=== PATIENT | male | born 1980 | race African-American/Black ===

== ENCOUNTER 2019-12-24 13:16 | Inpatient (IN) | payer OTHER ==
[~2019-12-24] VITALS: Ht 182.9 cm; Wt 116.3 kg
[2019-12-24] VITALS (17 sets, daily range): BP systolic 89–115; BP diastolic 40–89
[2019-12-24 14:05] LABS: URINE BILIRUBIN NEGATIVE (Negative); URINE BLOOD 2+ (Negative); URINE COLOR YELLOW; URINE GLUCOSE-RANDOM* NEGATIVE (Negative); URINE KETONES NEGATIVE (Negative); URINE NITRITE-REFLEX NEGATIVE (Negative); URINE PROTEIN (DIPSTICK) NEGATIVE (Negative); URINE SPECIFIC GRAVITY 1.015 (1.005-1.035); URINE UROBILINOGEN >= 8.0 E.U./dl (0.2-1.0)
[2019-12-24 14:11] LABS: AMP/METHAMP Negative (Negative); BARBITURATES Negative (Negative); BENZODIAZEPINES Negative (Negative); COCAINE Negative (Negative); METHADONE Negative (Negative); OPIATES Negative (Negative); PCP Negative (Negative)
[2019-12-24] MEDS ORDERED: FOLIC ACID1 MG PO (14:13)
[2019-12-24] MEDS ORDERED: ENULOSE10 GM/15 M PO (14:13)
[2019-12-24] MEDS ORDERED: FEOSOL325 M1 PO (14:13)
[2019-12-24] MEDS ORDERED: ROXICODONE5 M2 PO (14:14)
[2019-12-24] MEDS ORDERED: LEXAPRO20 MG PO (14:14)
[2019-12-24] MEDS ORDERED: SUPER THERAVIT1 EACH PO (14:14)
[2019-12-24] MEDS ORDERED: MIDODRINE HCL10 MG PO (14:14)
[2019-12-24] MEDS ORDERED: PROPRANOLOL 1010 M1 PO (14:15)
[2019-12-24] MEDS ORDERED: PROTONIX40 M2 PO (14:15)
[2019-12-24 14:16] LABS: URINE LEUKOCYTES-REFLEX 2+ (Negative)
[2019-12-24] MEDS ORDERED: TORSEMIDE10 MG PO (14:16)
[2019-12-24] MEDS ORDERED: SPIRONOLACTONE100 M1 PO (14:16)
[2019-12-24] MEDS ORDERED: XIFAXAN550 M1 PO (14:16)
[2019-12-24 14:17] LABS: URINE CLARITY SL HAZY
[2019-12-24] MEDS ORDERED: VITAMIN B-1100 M2 PO (14:17)
[2019-12-24 14:23] LABS: BACTERIA-REFLEX 1-9 Few /HPF (None Seen); CASTS None Seen /LPF (None Seen); CRYSTALS None Seen /LPF (None Seen); SQUAMOUS 4-10 Moderate /LPF (0-3); URINE RBC 3-10 Few /HPF (0-2); URINE WBC-REFLEX 6-15 Few /HPF (0-5); WBC CLUMPS Few (None Seen)
[2019-12-24 15:45] LABS: RDW 17.3 % (10.5-14.5)
[2019-12-24 15:46] LABS: BASOPHILS 0.2 % (0.0-2.0); EOSINOPHILS 0.5 % (0.0-3.0); LYMPHOCYTES 9.6 % (24.0-44.0); MCH 29.7 pg (26.0-34.0); MCHC 33.4 g/dL (28.0-37.0); MCV 88.9 fL (80.0-100.0); POLYS 78.7 % (36.0-66.0); RBC 1.92 mil/uL (4.50-6.00)
[2019-12-24 15:49] LABS: HEMATOCRIT 17.1 % (42.0-52.0); HEMOGLOBIN 5.7 gm/dL (14.0-18.0)
[2019-12-24 16:07] LABS: PLATELET COUNT 65 thou/uL (150-400)
[2019-12-24 16:08] LABS: CALCIUM 10.7 mg/dL (8.5-10.1); CREATININE 2.9 mg/dL (0.7-1.3); LARGE PLATELETS RARE; POTASSIUM 3.9 mmol/L (3.5-5.1)
[2019-12-24 16:12] LABS: MAGNESIUM 1.3 mg/dL (1.8-2.4); TOTAL BILIRUBIN 11.2 mg/dL (<0.1-1.0); TOTAL PROTEIN 5.4 g/dL (6.4-8.2); TROPONIN-I 0.07 ng/mL (<0.06)
--- NOTE | 2019-12-24 18:35 | NUR ---
VASCULAR ACCESS TEAM CONSULTED FOR PICC LINE, PT'S LABS,MEDS,HISTORY,ORDER AND CONSENT VERIFIED. DISCUSSED BENEFITS AND RISKS OF PICC WITH COUSIN,LISA, VERBALIZED UNDERSTANDING. ELODIA BRACHIAL WIDELY PATENT WITH USG. PT VERY RESTLESS AND COMBATIVE DURING DIFFICULT INSERTION. 5FR TL PICC TRIMMED TO 37CM INSERTED TO 2CM EXTERNAL WITH BRISK BR. SITE BLEEDING, GAUZE AND COBAN APPLIED, PT HAS LOW PLATELET COUNT.HAD DIFFICULTY DROPPING PICC LINE HAD TO REPOSITION PT SEVERAL TIMES. STAT CXR ORDERED.
--- NOTE | 2019-12-24 18:58 | NUR ---
cxr showed PICC IN UPPER SVC, STERILE DRG,GAUZE REMOVED. POWER FLUSHED INSERTED TO 0CM WITH BRISK BR. 2ND CXR ORDERED.
--- NOTE | 2019-12-24 19:19 | NUR ---
2ND CXR SHOWED LINE GOING ACROSS CHEST, SO AGAIN POWER FLUSHED ALL 3 PORTS, 3RD CXR SHOWED LINE STRAIGHTENED IN SVC.
--- NOTE | 2019-12-24 19:42 | NUR ---
3RD XRAY CONFIRMED PICC PLACEMENT AT [facility], PICC RELEASED FOR IMMEDIATE USE PER PROTOCOL.
--- NOTE | 2019-12-24 19:52 | NUR ---
RECIEVED PATIENT FROM ER, MOANING BUT NOT COMMUNICATING. TRANSFERED TO ICU BED. RESTLESS AND AGITATED. BRIEF SOAKED IN URINE AND SMALL AMOUNT OF BLOODY STOOL NOTED. IV TEAM AT BEDSIDE TO PLACE PICC AND COUSIN CYRUS ALSO AT BEDSIDE AND ABLE TO ANSWER SOME HISTORY QUESTIONS. WILL REPORT TO NIGHT RN.
[2019-12-24 21:13] LABS: INR 2.3; PROTIME 23.5 Seconds (9.3-11.4)
[2019-12-24 23:45] LABS: HEMATOCRIT 17.3 % (42.0-52.0); HEMOGLOBIN 5.8 gm/dL (14.0-18.0)
[2019-12-25] VITALS (66 sets, daily range): BP systolic 84–124; BP diastolic 32–79
--- NOTE | 2019-12-25 02:01 | NUR ---
NEED CONSENT SIGNED BY PT'S DPOA/COUSIN CYURS FOR GI PROCEDURE ON 12/24. AROUND 2214, MESSAGE LEFT FOR CYRUS TO CALL NURSES STATION. NO CALL BACK YET RECEIVED.
[2019-12-25 04:34] LABS: CALCIUM 9.4 mg/dL (8.5-10.1); CREATININE 2.6 mg/dL (0.7-1.3); MAGNESIUM 1.1 mg/dL (1.8-2.4); POTASSIUM 3.9 mmol/L (3.5-5.1)
[2019-12-25 05:02] LABS: MCH 29.8 pg (26.0-34.0)
[2019-12-25 05:04] LABS: ABSOLUTE NEUTROPHILS 3.5 thou/uL (1.4-8.2); BASOPHILS 0.6 % (0.0-2.0); EOSINOPHILS 0.4 % (0.0-3.0); LYMPHOCYTES 8.3 % (24.0-44.0); MCHC 33.7 g/dL (28.0-37.0); MCV 88.3 fL (80.0-100.0); MONOCYTES 11.4 % (1.0-8.0); PLATELET COUNT 52 thou/uL (150-400); POLYS 79.3 % (36.0-66.0); RBC 1.98 mil/uL (4.50-6.00); RDW 16.9 % (10.5-14.5); WBC 4.5 thou/uL (4.0-11.0)
[2019-12-25 05:07] LABS: HEMATOCRIT 17.5 % (42.0-52.0); HEMOGLOBIN 5.9 gm/dL (14.0-18.0)
--- NOTE | 2019-12-25 07:42 | NUR ---
ASSUMED PT CARE AROUND 1900. PT RESPONDS TO HIS NAME BUT IS OTHERWISE VERY CONFUSED. HE YELLS OUT "NO" AND CUSSES WHEN APPROACHED OR TOUCHED BY STAFF MEMBERS. PT WAS VERY RESTLESS AND AGITATED AT BEGINNING OF SHIFT. NOTIFIED SHIPS OR BARGES LOADER PATHOLOGY SPECIALIST FOR HOSPITALIST; HALDOL GIVEN PER ORDER. PT APPEARED TO BE IN PAIN WELL. FENTANYL GIVEN ORDERED. PT HAD TWO LARGE MAROON STOOLS THIS SHIFT. PT CALMED DOWN AND SLEPT AFTER HE RECEIVED THE FENTANYL. PT WAS GIVEN 2 UNITS OF PRBCS FOR HGB<7. 3RD UNIT PRBCS STARTED THIS MORNING HGB WAS STILL CRITICALLY LOW. SBP 80S THIS MORNING AND URINE VERY CONCENTRATED. NOTIFIED SHIPS OR BARGES LOADER PATHOLOGY SPECIALIST FOR HOSPITALIST. AFEBRILE. FALL PRECAUTIONS IN PLACE. NOT PROGRESSING WELL TOWARD POC GOALS. REPORT GIVEN TO ONCOMING NURSE.
--- NOTE | 2019-12-25 08:45 | EKG ---
[facility] [place] [address] ELECTROCARDIOGRAM REPORT Name: MAR ROMAN Room #: 245-P ADM IN M.R.#: [id number] Admission: 12/24/19 Attend Phys: Chris Chiang MD Discharge: Date of : 76 Report #: [id number] THIS REPORT FOR: cc: Himanshu Shah James D. DO Lundgren, Craig H. MD [facility] THIS REPORT FOR: //name// [facility] ED Test Date: 2019-12-24 Test Time: 14:19:37 Pat Name: MAR ROMAN Department: Patient ID: [id number]- Room: Gender: M Enterprise Sales Person: juwan : 1980 Requested By: Shekhar Cuellar Order Number: [id number] MD: Denver Smart Measurements Intervals [place] Rate: 70 P: NC: QRS: 24 QRSD: 101 T: 167 QT: 480 QTc: 519 Interpretive Statements Baseline artifact limits rhythm interpretation. Supraventricular rhythm Nonspecific ST and T wave abnormality Prolonged QT interval No previous ECG available for comparison Electronically Signed On 12-25-2019 8:44:25 CDT by Denver Smart [email or web address] <ELECTRONICALLY SIGNED> By: Denver Smart MD, [facility] 12/25/19 0844 1419 1419 Denver Smart MD, [facility] /EPI
--- NOTE | 2019-12-25 08:56 | NUR ---
chart review. pt in bed with eyes closed bedside nurse in room as well. pt verbal stated " come on now, oh. legs hurt"/antione in a very loud voice. bedside nurse still with pt at end of visit. unable to educate on dcp and transition of care rt pt mental status at this time. karlos spoke with pt cousin carlie va phone call, he reported " [facility] and most of days at [facility] then went to [facility] for short term rehab. he is self employed, lives in house alone. has few stairs at home. independent. had acute rehab at [facility]. no outpt or inpt rehab for ethol."carlie. will cont following as needed for dc needs.
[2019-12-25 09:13] LABS: HEMATOCRIT 20.3 % (42.0-52.0); HEMOGLOBIN 6.9 gm/dL (14.0-18.0)
--- NOTE | 2019-12-25 12:48 | NUR ---
prbc's infusing, tolerating. pt yelling out, unable to console, continues yelling. SR, remains npo, adequate urine output. report given to Georgiana gi solder making laborer, pt transported to gi lab per icu bed.
--- NOTE | 2019-12-25 13:30 | NUR ---
returned from gi lab per icu bed. pt hollering out, restless. alert to person and that he is in the hospital. SR, 2L/nc, jason with adequate bonny urine output.
--- NOTE | 2019-12-25 14:59 | P ---
[facility] [place] [address] PROCEDURE REPORT Name: MAR ROMAN Room #: [facility]-P [facility] IN M.R.#: [id number] Admission: 12/24/19 Attend Phys: Chris Chiang MD Discharge: Date of : 76 Report #: [id number] THIS REPORT FOR: cc: Himanshu Shah James D. DO Thesing, John A. MD ~ CC: Chris Meza INPATIENT UPPER ENDOSCOPY BRIEF HISTORY: The patient is a 39-year-old male with known history of cirrhosis and previous variceal banding with evidence of GI bleeding. He presented with a hemoglobin of 5.5. I do not have an exact date, but I believe [facility]. Upper endoscopy on 12/11/2019 at [facility] revealed 1+ esophageal varices and esophageal ulcers. PREOPERATIVE DIAGNOSES: Gastrointestinal bleeding and portal hypertension. POSTOPERATIVE DIAGNOSES: 1. Multiple ulcers of the esophagus, nonbleeding. 2. Very small and barely detectable esophageal varices, 1+, nonbleeding. 3. Diffuse gastritis, nonbleeding. MEDICATIONS: Deep sedation with propofol per anesthesia. SPECIMEN: None. ESTIMATED BLOOD LOSS: None. PROCEDURE: EGD. FINDINGS: Prior to propofol sedation, procedure of upper endoscopy discussed with the patient. He indicates he understands and desired that we proceed. DESCRIPTION OF PROCEDURE: The patient was fairly uncooperative and the procedure was done in the supine position with his head and chest raised about 30 degrees. The Olympus video endoscope was inserted in cervical esophagus under direct vision. Examination of this organ through its entire length revealed no evidence of blood within the lumen of the esophagus. In the distal esophagus, there were multiple ulcers. The ulcers appeared to be fairly superficial and appeared to be healing. There was white to yellowish exudate over the ulcers. However, stigmata of bleeding was not seen such as clots, red dots, black clots or exposed vessels. In addition, there was evidence of scarring in the distal esophagus. Also, very subtle 1+ or less esophageal [facility] [address] [place] [address] PROCEDURE REPORT Name: MAR ROMAN Room #: 245-P [facility] IN M.R.#: [id number] Admission: 12/24/19 Attend Phys: Chris Chiang MD Discharge: Date of : 76 Report #: [id number] varices were seen. There was no stigmata of bleeding from the varices. The scope was advanced in the stomach, was examined on end view as well as retroflexed views. There was gastritis and there was bile throughout the stomach. However, no blood or clot was seen within the stomach. The mucosa was intact and there was no evidence of bleeding. Upon retroflexion, no mass lesions were seen. Also, gastric varices were not seen. The pylorus was unremarkable. Duodenal bulb was unremarkable. Duodenal sweep down to third portion was unremarkable. Specifically, there was no evidence of blood in the duodenum. No ulcers were seen. At that point, the scope was slowly withdrawn and careful circumferential views confirmed the above findings. The patient tolerated the procedure well. DISPOSITION: The patient with GI bleeding. He was noted to have portal hypertension. However, I do not find evidence of bleeding on his upper endoscopy. His varices were minimal and not likely to bleed. Also, he does have esophageal ulcers from previous banding. However, stigmata of bleeding is not identified. Source of bleeding is not clear. A colonoscopy would be indicated. However, the patient is very uncooperative and somewhat combative. I am not sure that he will cooperate for colonoscopy prep. Bleeding scan would be a consideration, but I am not sure he would cooperate for that procedure as well. CT scan of the abdomen with contrast may also be a consideration, but he has a creatinine of 2.6 and therefore that study could not be done. Hopefully, in a day or so, he will settle down, so we can have him do a prep and proceed with colonoscopy. Another option, which would be an unprepped colonoscopy, which potentially could be very difficult in this patient. <ELECTRONICALLY SIGNED> By: Chun Meza MD 12/25/19 1459 1324 1345 Chun Meza MD /nt
--- NOTE | 2019-12-25 14:59 | HC ---
[facility] [place] [address] CONSULTATION Name: MAR ROMAN Room #: [facility]- ADM IN M.R.#: [id number] Admission: 12/24/19 Attend Phys: Chris Chiang MD Discharge: Date of : 76 Report #: [id number] THIS REPORT FOR: cc: Himanshu Shah James D. DO Thesing, John A. MD ~ CC: Chris Meza DATE OF SERVICE: 12/24/2019 REASON FOR CONSULTATION: The patient is a 39-year-old male with history of cirrhosis and liver failure with worsening mental status changes as well as marked anemia and evidence of GI bleeding. HISTORY OF PRESENT ILLNESS: This patient is in Intensive Care Unit at [facility] at this time. He is confused and lethargic and unable to give a history. I spoke with the nurse who spoke to a cousin who reportedly is DPOA. According to that person prior to his recent admissions which I will review, he had been living alone by himself. However, apparently he was admitted to [facility] with evidence of hemorrhage and shock secondary to acute GI bleeding with variceal bleeding. He also had internal and external hemorrhoids. He was stabilized at [facility] and since he is out of network, he was transferred to [facility] where he was seen by GI and Nephrology services. Apparently, he had banding of varices, I presume at [facility]. On 12/11/2019, he had an upper endoscopy at [facility] and there is a report on the chart that indicates he had nonbleeding esophageal ulcers, grade 1 varices and normal stomach and duodenum. He presumably had large varices, which were banded and presumably the ulcers were from the banding. He was treated with octreotide as well. He also received multiple units of packed cells and FFP. He also had evidence of kidney injury and was seen by the Nephrology service as well. He also had encephalopathy and was treated with lactulose and Xifaxan. He also had been on spironolactone and midodrine and OxyIR. Other notes in the records indicate he received 5 units of packed cells and 6 units of FFP as well as 2 units of platelets and 10 packs of cryo at [facility]. He was transferred to a nursing facility. Apparently, he has done poorly and he was brought to [facility] due to failure to thrive and increasing confusion. He was evaluated in the Emergency Room here at [facility] and laboratory studies were obtained and he was found to have hemoglobin of 5.7, MCV 88.9, white count of 5.0 and a platelet count of 65,000. His electrolytes were normal, his CO2 was 32, his BUN of 42, creatinine 2.9. Lactic acid was 5.8. His calcium was a little elevated at 10.7, magnesium 1.3, total bilirubin 11.2, AST of 69, ALT of 27, alkaline phosphatase 74. Ammonia was 113. [facility] [address] [place] [address] CONSULTATION Name: MAR ROMAN Room #: 245-P ADM IN M.R.#: [id number] Admission: 12/24/19 Attend Phys: Chris Chiang MD Discharge: Date of : 76 Report #: [id number] Albumin 3.0. Drug screen was negative. Alcohol is less than 10. The patient is currently in the intensive care unit. He as of this time has not received any blood. His vital signs are stable at this time and recent blood pressure is 112/62 with a pulse of 67, respiratory rate of 14. PAST MEDICAL HISTORY: Limited information available at this time from the records from the nursing facility. His list of diagnoses include posthemorrhagic anemia, alcoholic cirrhosis without ascites, hepatic failure, esophageal varices with bleeding, portal hypertension, protein-calorie malnutrition, pleural effusion, hyperparathyroidism, obesity, hyperlipidemia, anxiety, posttraumatic stress disorder, obstructive sleep apnea, reflux disease, acute kidney failure and chronic kidney disease. MEDICATIONS: Usual medicines from the nursing facility include lactulose 30 mL by mouth 4 times a day, iron sulfate 325 mg 1 daily, folic acid 1 mg daily, Lexapro 20 mg daily, midodrine 10 mg with meals, multivitamin, oxycodone 5 every 2 hours as needed for [id number] pain, propranolol 10 mg twice daily, Protonix 40 mg twice a day, rifaximin 550 mg twice daily, spironolactone 100 mg daily, torsemide 1 tablet 2 times daily and thiamine. FAMILY HISTORY: Unknown. SOCIAL HISTORY: Other than he was living alone recently and reportedly has alcoholic liver disease, no additional history is noted. REVIEW OF SYSTEMS: Unobtainable as the patient could not provide due to his altered mental status and confusion. PHYSICAL EXAMINATION: GENERAL: The patient is a well-developed, well-nourished mildly obese -[place] male in no acute distress. VITAL SIGNS: Blood pressure 112/62, pulse 67. HEENT: He has bilateral scleral icterus. Oropharynx clear. NECK: Supple. CHEST: Clear anteriorly. He has tender bilateral gynecomastia. HEART: Regular rate and rhythm. S1, S2. ABDOMEN: He is somewhat overweight. His abdomen is soft, normal bowel sounds. Mild diffuse tenderness. No rebound or rigidity. I did not appreciate organomegaly at this time. I did not appreciate significant ascites on exam. EXTREMITIES: With bilateral edema. NEUROLOGIC: The patient is confused. He moans and is somewhat combative. He has restraints. He also is tremulous and I did not appreciate asterixis, which is difficult to appreciate with his tremulousness. 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 [facility] [address] [place] [address] CONSULTATION Name: MAR ROMAN Room #: 245-P [facility] IN M.R.#: [id number] Admission: 12/24/19 Attend Phys: Chris Chiang MD Discharge: Date of : 76 Report #: [id number] In addition, he reportedly has internal and external hemorrhoids at the time of examination, on the bed with some maroonish bloody material. The patient reports that he has had 2 small outputs. He has not had a large volume of bleeding either with melena and there has been no hematemesis. ASSESSMENT: 1. Gastrointestinal bleeding, possibly related to portal hypertension and esophageal ulcer, status post banding of varices. 2. Cirrhosis, reportedly related to alcohol. 3. Portal hypertension with esophageal varices. 4. Ascites, minimal on exam at this time. 5. Hepatic encephalopathy. 6. Acute and chronic kidney disease. 7. Lactic acidosis. 8. Thrombocytopenia. COMMENT: The patient with evidence of GI bleeding and marked anemia. His heart rate and pulses are within normal limits at this point in time. Although there is some blood on the bedding, he is not briskly bleeding at this point in time. He has not yet been transfused. We have not yet received a prothrombin time. RECOMMENDATIONS: 1. Agree with octreotide drip, which has been started. 2. Agree with pantoprazole drip, which has been started. 3. Agree with transfusions, which have been ordered. 4. Follow up on prothrombin time. 5. If possible, would prefer to wait until he has been transfused and resuscitated prior to endoscopic intervention, likely tomorrow. However, if there is evidence of brisk bleeding, it could be completed at that time. 6. Agree with lactulose and Xifaxan. <ELECTRONICALLY SIGNED> By: Chun Meza MD 12/25/19 1459 42 32 Chun Meza MD /nt
[2019-12-25 18:43] LABS: HEMOGLOBIN 7.8 gm/dL (14.0-18.0)
--- NOTE | 2019-12-25 20:00 | NUR ---
obtained telephone consent for egd. remained npo. prbc's infusing, pt down to and returned from gi lab on icu bed. egd negative for bleeding. tolerated prbc's, then ffp infusing. po prep started for colonscopy. pt yelling, hollering throughout majority of shift. haldol iv given without any relief, if anything he became more irritable, taking covers off and then beginning to try to get out of bed. Dr. Chiang notifed- order received for zyprexa. with Rhiannon Hanna RN's assistance, after she administered med, completed bath given. well tolerated, then pt dozing intermittently. family called, inquired regarding pt status, updated.
[2019-12-26] VITALS (26 sets, daily range): BP systolic 89–135; BP diastolic 43–82
[2019-12-26 00:18] LABS: HEMATOCRIT 23.2 % (42.0-52.0); HEMOGLOBIN 7.8 gm/dL (14.0-18.0)
[2019-12-26 06:11] LABS: INR 2.5; PROTIME 25.6 Seconds (9.3-11.4)
[2019-12-26 06:21] LABS: ABSOLUTE NEUTROPHILS 3.1 thou/uL (1.4-8.2); BASOPHILS 0.2 % (0.0-2.0); EOSINOPHILS 0.9 % (0.0-3.0); HEMATOCRIT 23.2 % (42.0-52.0); HEMOGLOBIN 7.7 gm/dL (14.0-18.0); LYMPHOCYTES 12.5 % (24.0-44.0); MCH 29.5 pg (26.0-34.0); MCHC 33.4 g/dL (28.0-37.0); MCV 88.3 fL (80.0-100.0); MONOCYTES 11.2 % (1.0-8.0); PLATELET COUNT 57 thou/uL (150-400); POLYS 75.2 % (36.0-66.0); RBC 2.63 mil/uL (4.50-6.00); RDW 17.3 % (10.5-14.5); WBC 4.1 thou/uL (4.0-11.0)
[2019-12-26 06:30] LABS: ALBUMIN 2.8 g/dL (3.4-5.0); CALCIUM 9.6 mg/dL (8.5-10.1); CREATININE 2.2 mg/dL (0.7-1.3); PHOSPHORUS 3.5 mg/dL (2.5-4.9); POTASSIUM 3.4 mmol/L (3.5-5.1); TOTAL BILIRUBIN 11.7 mg/dL (<0.1-1.0); TOTAL PROTEIN 5.1 g/dL (6.4-8.2)
--- NOTE | 2019-12-26 06:33 | NUR ---
PT CONFUSED AND FORGETFUL THROUGHOUT THE NIGHT. PT HAD BM X3. VITAL SIGNS STABLE. NPO SINCE MIDNIGHT. PLAN FOR COLONSCOPY TODAY. NO BLOODY BM AT NIGHT. PT PROGRESSING TOWARDS GOALS. CONTINUE TO MONITOR. CHART CHECK.
--- NOTE | 2019-12-26 13:22 | NUR ---
FAXED CLINICAL UPDATE TO [facility] SPOKE WITH BRIAN IN ADM SHE RECEIVED UPDATE. DP TO FOLLOW.
--- NOTE | 2019-12-26 18:30 | NUR ---
no active signs of bleeding. incontinent several stools. prep in progress for am colonscopy. confused, attempting to reorient, , jason with adequate urine output. slowly progressing.
[2019-12-27] VITALS (22 sets, daily range): BP systolic 48–109; BP diastolic 29–83
[2019-12-27 05:31] LABS: HEMATOCRIT 24.5 % (42.0-52.0); HEMOGLOBIN 8.1 gm/dL (14.0-18.0)
--- NOTE | 2019-12-27 05:37 | NUR ---
PT SLEEPING VERY WELL. PT HAD HIS HEART RATE DOWN TO LOW 40'S AND CAME RIGHT BACK UP TO LOW 50'S. PT'S BLOOD PRESSURE NORMOTENSIVE WITH SYSTOLIC MORE THAN 90 AND MAP GREATER THAN 65. COMMUNITY HEALTH PROGRAM REPRESENTATIVE NOTIFIED AND TOLD THE RN TO CLOSELY MONITOR THE PT AT THIS MOMENT.
[2019-12-27 05:41] LABS: ALBUMIN 2.6 g/dL (3.4-5.0); CALCIUM 8.8 mg/dL (8.5-10.1); CREATININE 1.7 mg/dL (0.7-1.3); POTASSIUM 3.3 mmol/L (3.5-5.1); TOTAL BILIRUBIN 10.4 mg/dL (<0.1-1.0); TOTAL PROTEIN 4.7 g/dL (6.4-8.2)
--- NOTE | 2019-12-27 07:27 | NUR ---
PT HAD X3 BM. NO BLOODY STOOLS. PLAN FOR COLONSCOPY THIS AM. POSSIBLE TRANSFER TO CCU. CHART CHECK. REPORT GIVEN TO OMEGA LINARES. PT PROGRESSING TOWARDS GOALS. CONTINUE TO MONITOR.
--- NOTE | 2019-12-27 13:41 | NUR ---
Status report called to Dr Barber. Earlier temp was 95.1 rectally and came up to 98.1 orally (warming blanket on pt). Pt is drowsy but arousable and will respond appropriately. Pt able to recall the correct year. Follows simple commands. Incontinent of watery liquid green stool. Most recent blood pressure 89/44. Transfer order clarified-ok to proceed with transfer to CCU or Critical care tele.
--- NOTE | 2019-12-27 18:00 | NUR ---
Pt had leaking around PICC line insertion site with red drainage. Sterile dressing change done by Jose Luis Hanna RN. Report called to esteban Steele RN on 2N at approx 1730. Pt transferred to 203 via bed. Pt more alert now and talking. Aware he is in the hospital. Pt was incontinent of large liqui stool-bath given by Livia DUFF prior to transfer. Pt oriented to new room by receiving RN. Call light in reach.
--- NOTE | 2019-12-27 18:07 | NUR ---
1730-HAD LG AMT (DOWN TO FEET) LQD GRN STOOL,VERY SEEDY.--VW
--- NOTE | 2019-12-27 18:49 | NUR ---
PT CARE ASSUMED APPROX 1800. PT ALERT. DENIES PAIN AND SOA. VSS. TOLERATING CLD. RUE PICC LINE CONTINUES TO BLEED PER NURSE REPORT. IV NURSE AT BEDSIDE AT THIS TIME REDRESSING. SHE WANTS COBAN THAT IS PLACING TO BE LEFT IN PLACE OVERNIGHT. WILL PASS ON TO NOC NURSE. NO DISTRESS NOTED.
[2019-12-28 00:06] LABS: GLYCOHEMOGLOBIN (HGB A1C) 5.2 % (4.8-5.6)
[2019-12-28 04:45] VITALS: BP 100/61
--- NOTE | 2019-12-28 04:58 | NUR ---
ASSUMED PT CARE AT 1900. PT IS ALERT AND CONFUSED, FORGETFUL. ICU TRANSFER. NO SIGN OF DISTRESS NOTED IN PT. FALL PRECAUTION IN PLACE. CALL LIGHT WITHIN REACH. DENIES ANY PAIN. ASSESSMENT COMPLETED AND DOCUMENTED. VITAL SIGNS STABLE. SCHEDULED MEDS ADMINISTERED TO PT. TOLERATED PO INTAKE. PT IS NPO FOR A COLONOSCOPY. CONTINUE TO MONITOR, NO FURTHER NEEDS AT THIS TIME.
[2019-12-28 06:39] LABS: ALBUMIN 2.7 g/dL (3.4-5.0); CALCIUM 8.9 mg/dL (8.5-10.1); CREATININE 1.6 mg/dL (0.7-1.3); PHOSPHORUS 2.7 mg/dL (2.5-4.9); POTASSIUM 3.5 mmol/L (3.5-5.1)
[2019-12-28 07:45] VITALS: BP 102/63
[2019-12-28 09:34] LABS: HEMATOCRIT 24.5 % (42.0-52.0); HEMOGLOBIN 8.2 gm/dL (14.0-18.0); MCH 30.3 pg (26.0-34.0); MCHC 33.4 g/dL (28.0-37.0); MCV 90.5 fL (80.0-100.0); RBC 2.7 mil/uL (4.50-6.00); RDW 19.3 % (10.5-14.5); WBC 4.2 thou/uL (4.0-11.0)
[2019-12-28 09:52] LABS: PROTIME 24.8 Seconds (9.3-11.4)
[2019-12-28 09:53] LABS: INR 2.4
--- NOTE | 2019-12-28 11:32 | NUR ---
Assumed pt care at 7am.Pt in bed alert and oriented to self only.Assessmet completed.vss.Pt wanted to eat and drink.Rn oriented patient and let him know that he will eat and drink after procedure today.Dr Chiang here,new order noted.She said pt will possibly dc home later today if stable after procedure. At around 1030,pt left per bed to gi lab accompanied by 2rns.Will continue to monitor.
--- NOTE | 2019-12-28 13:08 | NUR ---
BRAYAN reviewed chart and spoke with nursing and attending physician. Pt transferred to CCU from ICU yesterday. Pt had colonoscopy earlier today. Pt is progressing towards goals for discharge. Therapy ordered today to evaluate pt. BRAYAN updated [facility] post-acute liaison. Will need to obtain insurance authorization for pt to return to SNF. Awaiting therapy evals at this time. traffic and transport planner to fax clinical updates and therapy evals to [facility] for review when available. BRAYAN spoke with pt's cousin, Cuong, via phone to provide update. Cuong is agreeable with discharge plan. No weekend discharge anticipated, as facility will need to obtain insurance auth. BRAYAN is following to assist as needed with discharge planning.
--- NOTE | 2019-12-28 15:01 | NUR ---
FAXED REFERRAL TO [facility] FOR SKILLED STAY PT/OT NOTES NOT IN YET WILL FAX ONCE AVAILABLE. SPOKE WITH BRIAN IN ADM SHE RECEIVED REFERRAL AND WILL NEED TO SUBMIT FOR AUTH. PT WILL NOT DC OVER WEEKEND. DP TO FOLLOW.
[2019-12-28 15:37] LABS: HEMATOCRIT 27.5 % (42.0-52.0); HEMOGLOBIN 9.1 gm/dL (14.0-18.0); MCH 30.3 pg (26.0-34.0); MCV 91.7 fL (80.0-100.0); RDW 19.5 % (10.5-14.5); WBC 4.9 thou/uL (4.0-11.0)
[2019-12-28 16:07] LABS: ABSOLUTE NEUTROPHILS 3.5 thou/uL (1.4-8.2); ANISOCYTOSIS 3+
[2019-12-28 16:08] LABS: POLYCHROMASIA OCCASIONAL; SCHISTOCYTES OCCASIONAL
[2019-12-28 16:09] LABS: PLATELET COUNT 90 thou/uL (150-400); POIKILOCYTOSIS 1+
[2019-12-28 16:35] VITALS: BP 105/62
--- NOTE | 2019-12-28 17:09 | P ---
[facility] [place] [address] PROCEDURE REPORT Name: MAR ROMAN Room #: 203-P [facility] IN M.R.#: [id number] Admission: 12/24/19 Attend Phys: Chris Chiang MD Discharge: Date of : 76 Report #: [id number] THIS REPORT FOR: cc: Himanshu Shah James D. DO Thesing, John A. MD ~ CC: Chris Meza INPATIENT COLONOSCOPY REPORT BRIEF HISTORY: The patient is a 39-year-old male who has a known history of liver disease with portal hypertension and recently had banding of esophageal varices at another institution. He presented with GI bleeding. Upper endoscopy earlier this week revealed nonbleeding ulcers in the esophagus, which were likely from banding. They were nearly completely healed. There are also minimal varices and no gastric varices. It was uncertain if the patient had an upper GI bleed or lower GI bleeds, so colonoscopy was recommended. PREOPERATIVE DIAGNOSIS: Gastrointestinal bleeding. POSTOPERATIVE DIAGNOSES: 1. Multiple colon polyps. 2. Diverticulosis coli. 3. Large internal hemorrhoids. MEDICATIONS: Deep sedation with propofol per anesthesia. SPECIMENS: 1. Diminutive polyp, mid transverse colon. 2. Diminutive polyp, cecum. 3. Polyps x 2 at 30 cm. ESTIMATED BLOOD LOSS: 5 mL. PROCEDURE: Colonoscopy to cecum and terminal ileum with snare polypectomy, biopsy, and placement of endoscopic clips at polypectomy site. FINDINGS: Prior to propofol sedation, procedure was discussed with the patient. He is very drowsy, only does respond and therefore consent was obtained from his durable power of title attorney. DESCRIPTION OF PROCEDURE: Subsequently, the Olympus video colonoscope was introduced in the rectum, advanced under direct vision. The patient has not been all that cooperative. Specifically, the prep is poor. However, it was felt this is as likely the best we could do with this patient at this point in [facility] [address] [place] [address] PROCEDURE REPORT Name: MAR ROMAN Room #: 203-P [facility] IN [facility].#: [id number] Admission: 12/24/19 Attend Phys: Chris Chiang MD Discharge: Date of : 76 Report #: [id number] time. We irrigated and suctioned as much as possible, but ____ material could not be completely removed. The scope was advanced into the cecum, which was identified by the ileocecal valve and the appendiceal orifice. I was able to visualize the distal segment of terminal ileum. There was no blood or inflammatory changes or neoplastic changes in the terminal ileum. At that point, the scope was slowly withdrawn and careful circumferential views were obtained. Again, the prep was limited. However, we were able to obtain views of multiple areas of the mucosa, which was normal throughout the entire exam. A diminutive polyp was seen in the cecum, removed by cold biopsy forceps. He does have liver disease and he has borderline platelets. A hemostatic clip was placed at the polypectomy site with good hemostasis. The scope was further withdrawn and a few diverticula was seen in the proximal colon. Once again, no blood was seen. No inflammatory changes were seen. No mass lesions were seen. It is noted he does have a diffusely dilated colon suggestive of chronic constipation. In the mid transverse colon, another diminutive polyp was seen and removed with biopsy forceps. There was good hemostasis and clipping was not required. Scope was further withdrawn and no additional abnormalities were noted until the sigmoid colon was reached and there was noted to be [id number] sigmoid diverticular disease. There was no endoscopic evidence of diverticulitis. Again, there was no evidence of blood or clots. No clots were seen within the diverticulum. At 30 cm, two 5-6 mm polyps side by side were seen and removed by cold snare polypectomy. There was a little bit of oozing and a total of 3 hemostatic clips were placed at that level with good control. There was no further bleeding after clips were placed. The scope was further withdrawn and no additional abnormalities were seen. Scope was withdrawn in the rectum. Upon retroflexion, moderately large internal hemorrhoids were seen. It is also noted that he has external hemorrhoids as well. Again, there were no blood clots and I did not see stigmata of bleeding on the hemorrhoids. Scope was withdrawn. The patient tolerated the procedure well. DISPOSITION: Following the procedure, the patient was drowsy. He was taken to recovery area in good condition. DISCUSSION: The exact site of his bleeding is not entirely clear. There were several possibilities. One is that he did have an upper GI bleed, which had resolved by the time he arrived at this institution. He continued to have a large amount of bloody stools. It is possible he may have been still emptying his GI tract regards to the bleeding. It is noted, his hemoglobin has been stable over the past several days. He did receive a total of 4 units of packed cells. Another consideration is either diverticular bleed. However, I do not see any signs or evidence of diverticular bleeding or clots within the diverticulum. Third possibility is he had hemorrhoids. Again, stigmata of bleeding was not seen. Fourth possibility is there is unidentified source of GI bleeding, which [facility] [address] [place] [address] PROCEDURE REPORT Name: MAR ROMAN Room #: 203-P [facility] IN M.R.#: [id number] Admission: 12/24/19 Attend Phys: Chris Chiang MD Discharge: Date of : 76 Report #: [id number] was not identified today. Again, there was no blood anywhere on this examination today. DISPOSITION: Continue to monitor for GI bleeding. If he has evidence of further bleeding, he may need further intervention or evaluation. <ELECTRONICALLY SIGNED> By: Chun Meza MD 12/28/19 1709 [id number] [id number] Chun Meza MD /nt
[2019-12-28 19:45] VITALS: BP 111/61
[2019-12-29 04:45] VITALS: BP 102/59
--- NOTE | 2019-12-29 05:23 | NUR ---
ASSUMED PT CARE AT 1900. PT IS DROWSY. NO SIGN OF DISTRESS NOTED IN PT. FALL PRECAUTION IN PLACE. ASSESSMENT COMPLETED AND DOCUMENTED. VITAL SIGNS STABLE. SCHEDULED MEDS ADMINISTERED TO PT. TOLERATED PO INTAKE. CONTINUE TO MONITOR PT. BLOODY STOOL NOTED. DENIES ANY FURTHER NEEDS AT THIS TIME.
[2019-12-29 06:46] LABS: HEMATOCRIT 24.2 % (42.0-52.0); MCV 90.9 fL (80.0-100.0); RBC 2.66 mil/uL (4.50-6.00); RDW 19.7 % (10.5-14.5); WBC 3.8 thou/uL (4.0-11.0)
[2019-12-29 07:00] LABS: ALBUMIN 2.5 g/dL (3.4-5.0); CALCIUM 9.5 mg/dL (8.5-10.1); CREATININE 1.3 mg/dL (0.7-1.3); PHOSPHORUS 2.6 mg/dL (2.5-4.9); POTASSIUM 4.6 mmol/L (3.5-5.1)
[2019-12-29 07:35] VITALS: BP 108/67
[2019-12-29 11:13] VITALS: BP 83/56
[2019-12-29 13:42] LABS: HEMATOCRIT 21.9 % (42.0-52.0); HEMOGLOBIN 7.1 gm/dL (14.0-18.0)
--- NOTE | 2019-12-29 14:31 | NUR ---
Assumed pt care at 7am.Pt in bed awake and oriented to self and place. Assessment completed.vss. Pt took po med but refused rectal supp this am.Ate 50% of meals at breakfast and lunch.Hgb this am was 8.1 but dropped to 7.[address] Zhang here and order noted.Pt will be having 1 unit of blood later this afternoon whenever ready by lab.No bloody stool noted at present.Will continue to monitor.
[2019-12-29 15:39] VITALS: BP 105/75; BP 107/60
[2019-12-29 16:30] VITALS: BP 101/63
[2019-12-29 19:51] VITALS: BP 107/64
--- NOTE | 2019-12-30 04:39 | NUR ---
PT RESTING QUIETLY IN BED TURNING SELF AND REPOSITIONING, NO C/O PAIN, VSS, NEEDS SUPERVISION FOR ALL PO INTAKE, DE DIOS WITH DARK YASMEEN URINE, WILL CON'T TO MONITOR PER PPOC.
[2019-12-30 04:45] VITALS: BP 105/57
[2019-12-30 07:30] VITALS: BP 106/57
[2019-12-30 08:12] LABS: HEMATOCRIT 24.1 % (42.0-52.0); MCV 91.4 fL (80.0-100.0)
[2019-12-30 08:14] LABS: MCH 30.5 pg (26.0-34.0); MCHC 33.3 g/dL (28.0-37.0); PLATELET COUNT 44 thou/uL (150-400); RBC 2.63 mil/uL (4.50-6.00); WBC 3.7 thou/uL (4.0-11.0)
[2019-12-30 08:29] LABS: ALBUMIN 2.5 g/dL (3.4-5.0); CALCIUM 9.7 mg/dL (8.5-10.1); CREATININE 1.6 mg/dL (0.7-1.3); MAGNESIUM 2.1 mg/dL (1.8-2.4); PHOSPHORUS 2.2 mg/dL (2.5-4.9); POTASSIUM 4.3 mmol/L (3.5-5.1); TOTAL BILIRUBIN 10.1 mg/dL (<0.1-1.0); TOTAL PROTEIN 4.7 g/dL (6.4-8.2)
[2019-12-30 08:46] LABS: ABSOLUTE NEUTROPHILS 2.2 thou/uL (1.4-8.2); LARGE PLATELETS FEW; PLATELET ESTIMATE MARKEDLY DECREASED
[2019-12-30 11:20] VITALS: BP 105/60
[2019-12-30 16:55] VITALS: BP 101/59
[2019-12-30 19:59] VITALS: BP 111/62
[2019-12-31] VITALS (22 sets, daily range): BP systolic 79–97; BP diastolic 42–58
--- NOTE | 2019-12-31 05:27 | NUR ---
ASSUMED PT CARE AT 1900, PT IS ALERT AND ORIENTED TO SELF, DENIES PAIN, SOB OR DISCOMFORT, SR ON THE MONITOR, VSS, DE DIOS IN PLACE DRAINING YASMEEN URINE, NO BLOODY STOOL NOTED, Q 2 TURNS MAINTAINED, PT BP THIS MORNING LOW, DEV MANAGER NOTIFIED, ORDERS RECEIVED, RESTING IN BED WITH NO DISTRESS NOTED, CLEAR/DIMINISHED LUNGS, MEDICATION GIVEN ORDRED, WILL CONTINUE TO MONITOR
[2019-12-31 07:15] LABS: HEMATOCRIT 20.8 % (42.0-52.0); HEMOGLOBIN 6.9 gm/dL (14.0-18.0)
[2019-12-31 07:16] LABS: MCH 30.4 pg (26.0-34.0); MCHC 33.3 g/dL (28.0-37.0); MCV 91.4 fL (80.0-100.0); RBC 2.27 mil/uL (4.50-6.00); WBC 3.1 thou/uL (4.0-11.0)
[2019-12-31 07:34] LABS: ALBUMIN 2.4 g/dL (3.4-5.0); CALCIUM 9.4 mg/dL (8.5-10.1); CREATININE 1.7 mg/dL (0.7-1.3); POTASSIUM 4.7 mmol/L (3.5-5.1); TOTAL BILIRUBIN 8.8 mg/dL (<0.1-1.0); TOTAL PROTEIN 4.4 g/dL (6.4-8.2)
--- NOTE | 2019-12-31 09:24 | NUR ---
Pt TRANSFERRING TO ICU THIS AM. WILL PLACE ON HOLD AND AWAIT NEW ORDERS WHEN APPROPRIATE
--- NOTE | 2019-12-31 09:44 | NUR ---
FAXED CLINICAL UPDATE TO [facility] SPOKE WITH BRIAN IN ADM SHE RECEIVED UPDATE.
--- NOTE | 2019-12-31 10:06 | NUR ---
PATIENT TRANSFERRING TO ICU THIS AM. OT SERVICES WILL PLACE PATIENT ON HOLD AND WILL REQUIRE NEW ORDERS TO RESUME THERAPY SERVICES.
--- NOTE | 2019-12-31 11:28 | NUR ---
PATIENT MOVED TO ICU FROM CCU DUE TO HYPOTENSION, UPON ARRIVAL TO ICU VITALS STABLE AND DENIES PAIN. PER REPORT, PATIENT TRANSFUSED 1U PRBC AND FFP PENDING TRANSFUSION. PATIENT IS DROWSY BUT AWAKENS, ONLY ORIENTED TO PERSON. PER REPORT FAMILY WAS ALREADY UPDATED BEFORE TRANSFER. WILL CONTINUE TO MONITOR.
[2019-12-31 11:49] LABS: PROTIME > 210.1 Seconds (9.3-11.4)
[2019-12-31 11:55] LABS: INR > 18.0
[2019-12-31 12:04] LABS: HEMOGLOBIN 8.2 gm/dL (14.0-18.0)
[2019-12-31 12:06] LABS: HEMATOCRIT 24.8 % (42.0-52.0)
--- NOTE | 2019-12-31 13:51 | NUR ---
FFP TRANSFUSING AND PAITENT TOLERATING WELL. TEXT PER LANNYO SENT TO DR. PINK REGARDING CRITICAL INR, PATIENT HAD ALREADY RECEIVED VIT K, NO RESPONSE FROM DR. PINK.
--- NOTE | 2019-12-31 17:17 | NUR ---
ASSUMED CARE PT SHIFT CHANGE. ASSESSMENT CHARTED. BP LOW, HGB 6.9. PHYSICIAN NOTIFIED. ORDERS RECEIVED. PHYSICIAN ORDERED FOR TX TO ICU. PT HAD LARGE STOOL BLOOD WITH VISIBLE BLOOD NOTED. REPORT CALLED TO SCARLET DUFF IN ICU. PT TRANSFERRED.
[2020-01-01] VITALS (46 sets, daily range): BP systolic 74–114; BP diastolic 24–95
[2020-01-01 05:33] LABS: WBC 3.3 thou/uL (4.0-11.0)
[2020-01-01 05:35] LABS: HEMATOCRIT 23.3 % (42.0-52.0); HEMOGLOBIN 7.8 gm/dL (14.0-18.0); MCH 30.3 pg (26.0-34.0); MCHC 33.4 g/dL (28.0-37.0); MCV 90.6 fL (80.0-100.0); PLATELET COUNT 47 thou/uL (150-400); RBC 2.57 mil/uL (4.50-6.00); RDW 20.2 % (10.5-14.5)
[2020-01-01 05:53] LABS: ALBUMIN 2.5 g/dL (3.4-5.0); CALCIUM 9.9 mg/dL (8.5-10.1); CREATININE 1.8 mg/dL (0.7-1.3); MAGNESIUM 2.3 mg/dL (1.8-2.4); PHOSPHORUS 3.4 mg/dL (2.5-4.9); POTASSIUM 4.9 mmol/L (3.5-5.1); TOTAL BILIRUBIN 8.7 mg/dL (<0.1-1.0); TOTAL PROTEIN 4.8 g/dL (6.4-8.2)
[2020-01-01 06:44] LABS: PROTIME > 210.1 Seconds (9.3-11.4)
[2020-01-01 06:45] LABS: INR > 18.0
[2020-01-01 06:56] LABS: ABSOLUTE NEUTROPHILS 2.5 thou/uL (1.4-8.2)
[2020-01-01 06:57] LABS: ANISOCYTOSIS 1+; BURR CELLS 1+; PLATELET ESTIMATE MARKEDLY DECREASED; POIKILOCYTOSIS 1+; POLYCHROMASIA 1+; SCHISTOCYTES 1+
--- NOTE | 2020-01-01 08:04 | NUR ---
PT LETHARGIC AND DROWSY. NO BM THROUGHOUT THE NIGHT. PT AFEBRILE. PT HYPOTENSIVE THIS AM. PT TOTAL URINE OUTPUT 200. PT HAVING CRITICAL INR>18.LENS POLISHER ERNESTO INFORMED AND NO ORDERS WERE GIVEN. PT NOT PROGRESSING TOWARDS GOALS. CHART CHECK. REPORT GIVEN TO [facility].
[2020-01-01 10:27] LABS: BE(vivo) -0.3 mmol/L (-2 to +3); HCO3 24.9 mmol/L (22.0-26.0); PCO2 43.5 mmHg (35.0-45.0); PO2 60.8 mmHg (80.0-100.0); pH 7.376 (7.360-7.450); sO2 90.7 % (92.0-98.0)
--- NOTE | 2020-01-01 14:22 | NUR ---
ON-GOING ASSESSMENT: PT HAS CRITICAL INR TODAY AND HEME WAS CONSULTED. PT MAY NEED NG. CM WILL CONTINUE TO FOLLOW TO ASSIST NEEDED AND UPDATE [facility] NEEDED.
--- NOTE | 2020-01-01 17:32 | NUR ---
ASSUMED CARE AT 0700, VITAL SIGNS AND ASSESSMENT DONE PER ICU PROTOCOL. DR. QUICK ROUNED THIS MORNING, NO NEW ORDERS RECEIVED. PT DROWSY FROM START OF SHIFT, UNABLE TO EAT BREAKFAST OR TAKE MEDICINE DUE TO LETHARGY. DR. PINK PAGED AND NOTIFIED, NEW ORDERS RECEIVED AND EXECUTED. DR. RUIZ ROUNDED THIS AM, NEW ORDERS RECEIVED AND EXECUTED.
[2020-01-01 18:28] LABS: HEMATOCRIT 25.5 % (42.0-52.0); HEMOGLOBIN 8.4 gm/dL (14.0-18.0); MCH 29.9 pg (26.0-34.0); MCHC 33.1 g/dL (28.0-37.0); MCV 90.5 fL (80.0-100.0); RBC 2.82 mil/uL (4.50-6.00); RDW 20.5 % (10.5-14.5); WBC 3.1 thou/uL (4.0-11.0)
--- NOTE | 2020-01-01 22:33 | NUR ---
1999- Dr Caputo called pt's sister and pt's DPA about pt condition. The family wanted the pt to be full code at this moment. 2129- Dr. Sorto was informed about pt situation. NG placed in the day shift. 120 ml bloody drainage out from the NG tube. Dr. Sorto wanted this RN to keep the NG where it is and keep it at LIS. He wanted this RN to monitor NG output and monitor pt's hemodynamic status at this time. Pt's vital signs stable at this moment. pt had BM X2. Pt will be continued to be monitored.
--- NOTE | 2020-01-01 22:41 | NUR ---
Pt pulled his NG tube out. Restraints taken off around 2200.
[2020-01-02] VITALS (32 sets, daily range): BP systolic 87–143; BP diastolic 38–94
[2020-01-02 02:50] LABS: HEMATOCRIT 25.2 % (42.0-52.0); HEMOGLOBIN 8.2 gm/dL (14.0-18.0)
[2020-01-02 04:29] LABS: HEMATOCRIT 24.5 % (42.0-52.0); HEMOGLOBIN 8.1 gm/dL (14.0-18.0); MCV 90.9 fL (80.0-100.0); RBC 2.69 mil/uL (4.50-6.00); RDW 20.5 % (10.5-14.5); WBC 3.2 thou/uL (4.0-11.0)
[2020-01-02 04:42] LABS: ALBUMIN 2.5 g/dL (3.4-5.0); CALCIUM 10.2 mg/dL (8.5-10.1); CREATININE 1.8 mg/dL (0.7-1.3); MAGNESIUM 2.2 mg/dL (1.8-2.4); PHOSPHORUS 3.7 mg/dL (2.5-4.9); POTASSIUM 5.1 mmol/L (3.5-5.1); TOTAL PROTEIN 4.9 g/dL (6.4-8.2)
[2020-01-02 05:06] LABS: INR > 18.0; PROTIME > 210.1 Seconds (9.3-11.4)
--- NOTE | 2020-01-02 11:29 | NUR ---
DR. PINK SPOKE WITH [facility] ABOUT POC.
--- NOTE | 2020-01-02 14:27 | NUR ---
ASSESSMENTS AND INTERVENTIONS DOCCUMENTED. NO MAJOR CHANGES THROUGH OUT SHIFT. SISTER FROM [place], DPOA AT BEDSIDE AND UPDATED ABOUT POC. SHE APPEARS TO BE AT EASE AND EXPRESSES UNDERSTANDING. PATIENT TRANSFERRED TO CCU.
--- NOTE | 2020-01-02 18:02 | NUR ---
PT CARE ASSUMED APPROX 0700. ASSESSMENT CHARTED. PT ARRIVED WITH A NOSE BLEED. THROMBIN PACKED TO NARES WITH MOUSTACHE DSG. DR MARTIN NOTIFIED THAT NASAL PACKING HAS NOT BEEN VERY EFFECTIVE AND THAT PT IS SWALLOWING BLOOD AT THIS TIME. CRITICALLY LOW LAB CALLED WELL. ORDER RECEIVED FOR ENT CONSULT. DR PINK NOTIFIED THAT ORDER RECEIVED FROM DR MARTIN WAS NOT GOING TO DO ANYTHING AT THIS TIME FOR BLEEDING. NO NEW ORDERS. DR PINK NOTIFIED THAT PT SEEMED TO BE HAVING PAIN AND MORPHINE WASN'T MANAGING ADEQUATELY. NEW ORDER FOR PAIN MANAGEMENT. PT APPEARS MORE COMFORTABLE AT THIS TIME. BLEEDING TO PICC SITE NOTED 2ND TIME DSG NEEDED TO BE CHANGED THIS SHIFT PER NURSE REPORT. DSG CHANGED AGAIN AT THIS TIME. WEJUNIOR NOTED FROM RLQ. TOWELS IN PLACE. TURNING PT Q2 HRS AND PRN. NO ACUTE DISTRESS NOTED.
[2020-01-03] VITALS (11 sets, daily range): BP systolic 88–140; BP diastolic 45–74
[2020-01-03 04:44] LABS: HEMOGLOBIN 6.5 gm/dL (14.0-18.0); WBC 4.3 thou/uL (4.0-11.0)
[2020-01-03 04:46] LABS: MCH 30.2 pg (26.0-34.0); MCV 91.4 fL (80.0-100.0); RBC 2.17 mil/uL (4.50-6.00); RDW 20.2 % (10.5-14.5)
[2020-01-03 04:58] LABS: ALBUMIN 2.9 g/dL (3.4-5.0); CALCIUM 10.1 mg/dL (8.5-10.1); CREATININE 1.9 mg/dL (0.7-1.3); MAGNESIUM 2.1 mg/dL (1.8-2.4); PHOSPHORUS 4.4 mg/dL (2.5-4.9); POTASSIUM 5.1 mmol/L (3.5-5.1); TOTAL BILIRUBIN 9.3 mg/dL (<0.1-1.0); TOTAL PROTEIN 4.8 g/dL (6.4-8.2)
[2020-01-03 05:00] LABS: HEMATOCRIT 19.8 % (42.0-52.0)
--- NOTE | 2020-01-03 07:45 | NUR ---
ASSUMED CARE OF PATIENT AT 1900. ASSESSMENTS COMPLETED. TELE STRIPS PRINTED AND PLACED IN CHART. PATIENT ONLY MOANS AND YELLS OUT CURSE WORDS. HE DOES NOT COMMUNICATE WITH ME. PATIENT GETTING FENTANYL Q 2 HR FOR PAIN WHICH SEEMS TO HELP HIM SIGNIFICANTLY. PATIENT HAS A DE DIOS CATHETER IN PLACE WITH GROSS HEMATURIA. PATIENT HAD EPISTAXIS X 3 WHICH TOOK GREATER THAN 15 MIN EACH TIME TO STOP. USED PRESSURE ON THE BRIDGE OF THE NOSE AND COLD ICE PACK ON THE BACK OF THE NECK. PATIENT COUGHED UP TWO DOLLAR SIZE BLOOD CLOTS. PATIENT HAD A COMPLETE BED CHANGE X 2, DUE TO THESE EPISTAXIS. PATIENT LAB WORK CAME BACK WITH A CRITICAL HEMATOCRIT AND LOW HEMOGLOBIN. LAB RESULTS CALLED TO [facility], AND ORDER WAS PLACED FOR TRANSFUSION. TYPE AND CROSS COMPLETED. NO CALL RECEIVED FOR BLOOD BEING READY PRIOR TO SHIFT CHANGE. PATIENT TO CONTINUE WITH POC.
--- NOTE | 2020-01-03 10:42 | NUR ---
WOUND CONSULT; THE PATIENT IS BLEEDING FROM HIS NOSE PROFUSLY AND FROM HIS PICC LINE CURRENTLY BEING ASSESSED BY THE IV TEAM. THE PATIENT HAS A RESOLVING WOUND TO THE RIGHT BUTTOCK OF AN UNKOWN ETIOLOGY AT THIS POINT. NO S/S OF INFECTION. RECOMMENDATIONS; ZGUARD DAILY/PRN
--- NOTE | 2020-01-03 12:08 | NUR ---
SW reviewed chart and spoke with nursing and attending physician. Palliative care physician consulted to discuss plan of care and treatment goals. Attending physician spoke with pt's sister, Jocelyn ([phone]). BRAYAN contacted [facility] post-acute liaison to see if copy of OA ppwk is available. [facility] does not have a copy. BRAYAN is following to assist as needed with discharge planning.
--- NOTE | 2020-01-03 14:35 | NUR ---
ASSUMED CARE OF PT AT SHIFT CHANGE. ASSESSMENTS CHARTED. IV MES GIVEN PER DEC. NO PO GIVEN D/T SEDATION AND NOT ORIENTED. PT LETHARGIC AND DROWSY, NOT ORIENTED. PT BLEEDING PROFUSELY FROM NOSE MOST OF MORINING. IMPLEMENTED ORDERS FOR VARIOUS BLOOD PRODUCTS AND LABS. PT VERY AGITATED AT TIMES. FENTNYL GIVEN FOR AGITATED WITH PARTIAL RESULTS. ONE LARGE BM WITH BLOOD MIXED WITH STOOL. ENT CONSULTED. GAVE REPORT TO [facility] D/T SPLIT SHIFT.
[2020-01-03 15:06] LABS: HEMOGLOBIN 5.6 gm/dL (14.0-18.0)
--- NOTE | 2020-01-03 16:20 | NUR ---
RECEIVED REPORT FROM ANTHONY RN, PT LYING IN BED, CALLING OUT "OK, COME ON NOW, OK, STOP!" RIGHT UPPER QUADRANT PAIN, PT NOT ORIENTED, BUT CONTINUALLY CALLING OUT. GAVE PRN PAIN MEDS AND ONE TIME DOSE OF HALDOL, PT STILL CALLING OUT. SPOKE WITH SISTER, JENNIFER ROMAN, SHE'S AWARE THAT HE'S IN PAIN BUT SOUNDED SURPRISED ON THE PHONE, PT'S H&H RECHECKED AFTER FFPS, HEMOGLOBIN DROPPED TO 5.6. DR PINK AWARE, PT BLEEDING FROM NOSE, ENT DR IN TO PUT PLUGS IN PT'S NOSE, WILL MONITOR, VSS, 2ND UNIT PRBC CURRENTLY TRANSFUSING.
--- NOTE | 2020-01-03 16:27 | NUR ---
WHILE ENT MD APPLYING NOSE PLUGS, PT TRIED TO PULL THEM BOTH OUT, RESTRAINTS WERE APPLIED PER MD'S ORDER.
--- NOTE | 2020-01-04 03:53 | NUR ---
PT ALERT AND ORIENTED X1. RATE GENERALIZED PAIN OF 10/10. YEALING AND SCREAMING PERIODICALLY. Q2 TURNS. FENTANYL 25 MVG Q2H. NO NOSE BLEEDING OVERNIGHT. MINIMAL PIC LINE SITE BLEEDING. NO RECTAL BLEEDING NOTED OR VOMITING. ORAL PILLS HELD, PT IS A RISK FOR CHOCKING. NO OTHER CONCERN AT THIS TIME. WILL CONTINUE WITH CURRENT POC.
[2020-01-04 04:45] VITALS: BP 116/77
[2020-01-04 05:30] LABS: PROTIME 24.2 Seconds (9.3-11.4)
[2020-01-04 05:49] LABS: ALBUMIN 3.6 g/dL (3.4-5.0); CALCIUM 10.7 mg/dL (8.5-10.1); CREATININE 1.9 mg/dL (0.7-1.3); POTASSIUM 4.8 mmol/L (3.5-5.1)
[2020-01-04 05:59] LABS: INR 2.4
[2020-01-04 06:01] LABS: FIBRINOGEN 55.8 mg/dL (210-360)
[2020-01-04 08:17] VITALS: BP 110/73
--- NOTE | 2020-01-04 08:58 | PATH ---
[facility] [address] [address] PATHOLOGY RPT PROCEDURE Name: KVNG ROMAN Room #: 204-P ADM IN M.R.#: [id number] Admission: 12/24/19 Date of : 76 Discharge: Report #: [id number] Path Case #: [id number] [facility] Accession Number: [id number] . 01 Material submitted: . PART A: colon - POLYP AT MID TRANSVERSE COLON PART B: cecum - POLYP AT CECUM PART C: colon - POLYP AT 30CM . 01 Clinical history: . Melena . 02 Diagnosis: A. Polyp, at mid transverse colon, endoscopic biopsy: - Inflammatory polyp with hyperplastic changes. - Negative for dysplasia. . B. Polyp, at cecum, endoscopic biopsy: - Inflamed tubular adenoma. - Negative for high grade dysplasia. . C. Polyp x 3, at 30 cm, endoscopic biopsy: - All three fragments showing tubulovillous adenoma. - Negative for high grade dysplasia. (IUV/db; 01/01/2020) LBQ 01/01/2020 1228 Local . 02 Electronically signed: . Emili Childers MD, Pathologist NPI- [id number] . 01 Gross description: . A. The specimen is received in formalin, labeled "Kvng Roman, polyp at mid transverse colon". Received is a segment of pale caballero soft tissue measuring 0.3 cm in maximum dimensions. The specimen is submitted entirely in cassette A1. . B. The specimen is received in formalin, labeled "Kvng Briscoeb, polyp at cecum". Received are two segments of pale caballero soft tissue ranging in size from 0.3 to 0.5 cm in maximum dimensions. The specimen is submitted entirely in cassette B1. . C. The specimen is received in formalin, labeled "Kvng Roman, polyp at 30 cm x3". Received are three segments of pale caballero soft tissue ranging in size from 0.4 to 0.6 cm in maximum dimensions. The specimen is submitted entirely in cassette C1. (CAA; 12/31/2019) [address] [address] PATHOLOGY RPT PROCEDURE Name: KVNG ROMAN Room #: 204-P ADM IN M.R.#: [id number] Admission: 12/24/19 Date of : 76 Discharge: Report #: [id number] Path Case #: [id number] QAC/QAC 12/31/2019 1450 Local . 02 Pathologist provided ICD-10: K51.40, D12.0, D12.6 . 02 CPT . 689390, [id number], [id number] Specimen Comment: A courtesy copy of this report has been sent to [phone] Specimen Comment: Report sent to Specimen Comment: A duplicate report has been generated due to demographic updates. Performed at: [address], [place] [id number] MD Haseeb Barrett MD Phone: [phone] Performed at: [address] [id number] MD Emili Childers MD Phone: [phone]
[2020-01-04 09:47] LABS: MCH 30.3 pg (26.0-34.0); MCHC 32.6 g/dL (28.0-37.0); MCV 92.7 fL (80.0-100.0); RBC 1.87 mil/uL (4.50-6.00); RDW 20.2 % (10.5-14.5); WBC 7.8 thou/uL (4.0-11.0)
[2020-01-04 09:49] LABS: HEMATOCRIT 17.4 % (42.0-52.0); HEMOGLOBIN 5.7 gm/dL (14.0-18.0)
--- NOTE | 2020-01-04 10:02 | NUR ---
report received from terri Ascencio, saw patient at 0730, vss, pt's had large amount of blood, possibly some stool, in between his legs, was washed up by mental retardation nurse, all linens changed again. pt still calling out, "help" and "hello?" I keep reorienting pt but his does not comprehend what I'm saying. spoke with Cuong, "power of assistant city attorney" per his words, and updated him on the pt's condition. Dr Chacon in to see pt. aware of hgb 5.7. pt's vs are stable right now so he does not want to transfuse any blood. will monitor.
[2020-01-04 11:40] VITALS: BP 109/73
--- NOTE | 2020-01-04 14:26 | NUR ---
Dr Lerner consulted to sp with family regarding hospice. patient now a DNR. Updated [facility]. Patient rec skilled care at [facility].
[2020-01-04 17:00] VITALS: BP 119/62
--- NOTE | 2020-01-04 17:51 | NUR ---
ASSUMED CARE OF PT AT APPROX 1300 FROM [facility]. ASSESSMENTS CHARTED. MEDS GIVEN PER DEC. PT FREQUENTLY MOANS, OR CALLS OUT "OW". CODE STATUS CHANGED TO DNR AFTER CONVERSATIONS WITH FAMILY AND DRS. PT NOW ON COMFORT CARE, FAMILY DOES NOT WANT HOSPICE AT THIS TIME. BLOOD STILL PRESENT IN STOOLS, NO BLEEDING FROM NOSE OR PICC. WILL CONTINUE TO MONITOR AND FOLLOW POC.
[2020-01-04 20:00] VITALS: BP 120/73
--- NOTE | 2020-01-05 03:41 | NUR ---
ASSUMED PT CARE AT 1900. PT IS VERY LETHARGIC AND SEDATED. PT IS DNR STATUS. PT MED ADMINISTERED TO PT SCHEDULED. PT 2330, IA BECAME RESTLESS, WITH BLOOD OUT OF MOUTH. COMFORT MEASURES MET. PT HAD DIFFICULTY BREATHING. TIME OF 0040. FAMILY NOTIFIED, PHYSICIAN/SILVERWARE WASHER NOTIFIED, MTN NOTIFIED. PRONOUNCED WITH ANOTHER RN.
--- NOTE | 2020-01-05 09:00 | HC ---
[facility] [place] [address] [address] CONSULTATION Name: MAR ROMAN Room #: 204-P [facility] IN M.R.#: [id number] Admission: 12/24/19 Attend Phys: Chris Chiang MD Discharge: 01/05/20 Date of : 76 Report #: [id number] THIS REPORT FOR: cc: Himanshu Shah James D. DO Walton, Mark S. MD ~ CC: Chris Shah [facility] DATE OF SERVICE: 01/03/2020 SURGEON: Joseph Navarro MD REASON FOR CONSULTATION: Epistaxis. HISTORY OF PRESENT ILLNESS: The patient is a 39-year-old male admitted to [facility] on 12/24/2019 via EMS with confusion. He was sent from [facility] apparently transferred from [facility] to city hospital 3 days prior. The patient had been refusing any sustenance or medication and repeatedly yelling. The patient has end-stage liver disease with cirrhosis in addition to esophageal varices. The patient has been bleeding significantly since his admission. The patient had an NG tube placed which caused epistaxis and I was called this afternoon to see him. Hemoglobin this morning was 6.5 and the patient has actively been transfused both in packed red blood cells, fresh frozen plasma and platelets. Examination found a completely uncooperative, confused male, screaming in his room. There was intermittent bleeding from the right side. Recommendations were made for Rapid Rhino epistaxis packing bilaterally. PAST MEDICAL HISTORY: Significant for end-stage renal disease secondary to alcoholic cirrhosis, hypertension, esophageal varices, PCM, anemia, hyperparathyroidism, sleep apnea, GERD, kidney disease, overweight, altered mental status, confusion, anemia, anxiety, hypertension, hyperlipidemia, chronic kidney disease. Renal failure. MEDICATIONS: Reviewed in his MAR. ALLERGIES: None per the chart. SOCIAL HISTORY: Impossible as the patient is uncooperative. REVIEW OF SYSTEMS: Impossible secondary to him being unable to respond. PHYSICAL EXAMINATION: GENERAL: Shows an overweight 39-year-old male, seen in his hospital room. [facility] [address] [place] [address] CONSULTATION Name: MAR ROMAN Room #: 204-P [facility] IN M.R.#: [id number] Admission: 12/24/19 Attend Phys: Chris Chiang MD Discharge: 01/05/20 Date of : 76 Report #: [id number] of the history is gleaned from his nurses and the chart. VITAL SIGNS: Temperature of 97.6, pulse of 86, blood pressure 95/46. HEENT: Head exam shows some dried blood present in the right naris. There is some blood in the posterior pharynx that appears coagulated. NECK: Shows a midline trachea. NEUROLOGIC: Cranial nerves 2-12 otherwise seem intact. LABORATORY DATA: CBC this morning at 0400 showed a white count of 4300, hemoglobin of 6.5. Metabolic showed an elevated sodium and chloride, BUN of 26, creatinine 1.9 and glucose of 150. SGOT of 54, total bilirubin of 9.3, albumin of 2.9. The patient has platelets 42,000 range and recently had platelet transfusion this morning. Ammonia also elevated. D-dimer of 3.42. Ammonia of 38. Protime of greater than 210. INR of 18. ASSESSMENT: Epistaxis post-trauma from an NG tube now with persistent bleeding secondary to chronic liver disease resulting in a severely elevated INR and PT, low fibrinogen, low platelets. PLAN: I see no other option, but packing at this point in this severely ill male. He and his family have been counseled on his very grim prognosis and recommendations for DNR. Bilateral Rapid Rhino epistaxis sponges placed after topical Gerardo-Synephrine and lidocaine. The patient is very combative and verbally abusive. With the packs in place, the patient will need to continue on telemetry as he has an apnea risk. In addition, I would recommend an antistaphylococcal antibiotic be started. I will defer this to his medicine team since he has acute on chronic kidney disease and acute kidney injury. PLAN: We will defer decision to the patient's medical team and family concerning DNR status. These packs will stay in place a minimum of 72 hours. I have recommended restraints placed as likely he will pull them out otherwise, I have discussed this with his nursing staff. We will be available for followup in 3-4 days for removal. I appreciate the consultation. <ELECTRONICALLY SIGNED> By: Joseph Navarro MD 01/05/20 0900 1459 [id number] Joseph Navarro MD /nt
--- NOTE | 2020-01-07 07:23 | HC ---
[facility] [place] [address] CONSULTATION Name: MAR ROMAN Room #: 204-P [facility] M.R.#: [id number] Admission: 12/24/19 Attend Phys: Chris Chiang MD Discharge: 01/05/20 Date of : 76 Report #: [id number] THIS REPORT FOR: cc: Himanshu Shah James D. DO Al-Absi, Ahmed I. MD ~ CC: Chris Mccollum [facility] REASON FOR THE CONSULTATION: Acute kidney injury. REASON FOR THE PRESENTATION: Altered mental status. HISTORY OF PRESENT ILLNESS: This is obtained from the medical chart. The patient is not able to provide me with the details of the history. He is obtunded and in hepatic coma. He is an alcoholic liver patient who has been in 2 different facilities lately. He had been to [facility]. I reviewed the details of those 2 events of hospitalization. Apparently, the patient had bleeding and required significant blood transfusion during his hospital stay into those 2 facilities. An EGD revealed very large varices. He had banding that was complicated by an ulcer related to that. He was stabilized. He had run into acute kidney failure and Nephrology has evaluated him during his hospital stay into those facilities. He was transferred to a nursing facility and has done significantly poorly during his stay in the nursing facility. He was brought to the Emergency Room because of abnormal labs because of a change in the mental status. His laboratory values on presentation revealed a significantly low blood count. He was found to be anemic with an acute kidney injury and a creatinine value of 2.9. He was also found to have hyper and elevated ammonia level and was in hepatic encephalopathy. REVIEW OF SYSTEMS: Unobtainable given the patient's current mental status. ALLERGIES: None. HOME OR LONG TERM FACILITY MEDICATIONS: Include: 1. Rifaximin. 2. Aldactone. 3. Torsemide. 4. Midodrine. 5. Propranolol. SOCIAL HISTORY: Resides in a nursing facility. No other details available. FAMILY HISTORY: Unobtainable given the patient's current mental status. [facility] [address] [place] [address] CONSULTATION Name: MAR ROMAN Room #: 204-P [facility] M.R.#: [id number] Admission: 12/24/19 Attend Phys: Chris Chiang MD Discharge: 01/05/20 Date of : 76 Report #: [id number] SURGICAL HISTORY: Unobtainable. PAST MEDICAL HISTORY: 1. This is obtained from the medical chart. 2. Recent GI bleeding. 3. Alcohol abuse. 4. Esophageal varices. 5. Anemia requiring multiple blood transfusions. 6. Acute kidney injury. PHYSICAL EXAMINATION: GENERAL: The patient is obtunded. He is lethargic. He is moaning. VITAL SIGNS: Blood pressure is 93/49. HEAD AND NECK: Mildly icteric. CHEST: Decreased air entry bilaterally. CARDIOVASCULAR: No rub detected. ABDOMEN: Tender. LOWER EXTREMITIES: Trace edema. LABORATORY VALUES: Reviewed. Hemoglobin is 5.9, platelets are 52. Sodium is 144, BUN is 41, creatinine is 2.6. Lactic acid is down to 3.2. IMPRESSION AND PLAN: 1. Acute kidney injury. 2. Hematologic shock. 3. Recent gastrointestinal bleeding requiring multiple transfusions. 4. Anemia. 5. Thrombocytopenia. 6. Ongoing alcohol abuse. 7. Recent acute kidney injury. 8. The patient's acute kidney injury is related to his hemorrhagic shock. I would agree with the current management including aggressive IV fluid resuscitation and avoiding nephrotoxins. 9. Hold all diuretics. 10. Gastrointestinal evaluation ongoing and the patient will require an emergent endoscopy. 11. Continue with the octreotide. 12. Overall, very poor prognosis and we will continue to follow. <ELECTRONICALLY SIGNED> By: Manan Martinez MD 01/07/20 [id number] Manan Martinez MD /nt
== END 2020-01-05 03:45 | DRG 368 ==
LOC: ER 13:16 → EROBS 16:56 → ICU 16:56 → 2N 12-27 17:29 → ICU 12-31 11:22 → 2N 01-02 15:09
PROVIDERS: Emergency Medicine; Hospitalist; Internal Medicine; Internal Medicine Gastroenterology; Internal Medicine Hematology & Oncology; Internal Medicine Nephrology; Nurse Practitioner; Nurse Practitioner Family; Specialist; ADMIT Hospitalist
PROC: 02HV33Z Insertion of Infusion Device into Superior Vena Cava, Percutaneous Approach (ICD-10-PCS; principal; 2019-12-24)
PROC: 0DJ08ZZ Inspection of Upper Intestinal Tract, Via Natural or Artificial Opening Endoscopic (ICD-10-PCS; 2019-12-25)
PROC: 30233K1 Transfusion of Nonautologous Frozen Plasma into Peripheral Vein, Percutaneous Approach (ICD-10-PCS; 2019-12-25)
PROC: 0DBL8ZZ Excision of Transverse Colon, Via Natural or Artificial Opening Endoscopic (ICD-10-PCS; 2019-12-28)
PROC: 0DBH8ZZ Excision of Cecum, Via Natural or Artificial Opening Endoscopic (ICD-10-PCS; 2019-12-28)
PROC: 30233N1 Transfusion of Nonautologous Red Blood Cells into Peripheral Vein, Percutaneous Approach (ICD-10-PCS; 2019-12-29)
PROC: 30233M1 Transfusion of Nonautologous Plasma Cryoprecipitate into Peripheral Vein, Percutaneous Approach (ICD-10-PCS; 2020-01-03)
DX: I85.01 Esophageal varices with bleeding (principal); E43 Unspecified severe protein-calorie malnutrition; D62 Acute posthemorrhagic anemia; N39.0 Urinary tract infection, site not specified; N17.9 Acute kidney failure, unspecified; E46 Unspecified protein-calorie malnutrition; D68.9 Coagulation defect, unspecified; K57.31 Diverticulosis of large intestine without perforation or abscess with bleeding; K29.71 Gastritis, unspecified, with bleeding; K22.11 Ulcer of esophagus with bleeding; E78.5 Hyperlipidemia, unspecified; N18.9 Chronic kidney disease, unspecified; K72.90 Hepatic failure, unspecified without coma; E83.42 Hypomagnesemia; D69.6 Thrombocytopenia, unspecified; I12.9 Hypertensive chronic kidney disease with stage 1 through stage 4 chronic kidney disease, or unspecified chronic kidney disease; R57.8 Other shock; K70.10 Alcoholic hepatitis without ascites; G47.33 Obstructive sleep apnea (adult) (pediatric); F43.10 Post-traumatic stress disorder, unspecified; K70.31 Alcoholic cirrhosis of liver with ascites; K63.5 Polyp of colon; K64.8 Other hemorrhoids; F41.9 Anxiety disorder, unspecified; E87.6 Hypokalemia; Z68.34 Body mass index [BMI] 34.0-34.9, adult; Z79.899 Other long term (current) drug therapy
CPT/HCPCS: 10078; 10081; 10203; 27000; 62110; 62900; 70005; 85076